=== PATIENT | male | born 1985 | race Caucasian/White ===

== ENCOUNTER 2016-12-21 17:42 | Emergency (ER) | payer OTHER ==
[2016-12-21 18:53] LABS: HEMOGLOBIN 16.3 gm/dl (14.0-17.5); RED BLOOD COUNT 5.46 M/UL (4.20-5.50); WHITE BLOOD COUNT 11.2 K/UL (4.5-11.0)
[2016-12-21 19:14] LABS: BUN/CREATININE RATIO 6 (0-10)
== END 2016-12-21 20:05 | disposition home or self-care (01) ==
LOC: ER1 17:42
PROVIDERS: Physician Assistant Medical
DX: K05.219 Aggressive periodontitis, localized, unspecified severity (principal); F17.210 Nicotine dependence, cigarettes, uncomplicated
CPT/HCPCS: 36415; 80053; 85025; 96374; 96375; 99283; J1885; Q9962